=== PATIENT | male | born 1990 | race Caucasian/White ===

== ENCOUNTER 2020-09-14 19:24 | Day surgery (SDC) | payer OTHER, SELFPAY ==
[2020-09-14 19:28] VITALS: BP 161/98; PULSE 90; RESP 18; TEMP 36.6; O2SAT 98; BMI 30.3
--- NOTE | 2020-09-14 21:04 | ED_ITS ---
HPI - Abdominal Pain General: Chief Complaint: ER Hold Stated Complaint: Rt abd pain Time Seen by Provider: 09/14/20 21:04 History of Present Illness: HPI narrative: Patient is a 30-year-old male comes to the ED with abdominal pain. Patient says symptoms started today around noon. He started developing some abdominal pain that he described as a dull ache in the center of his abdomen. He says as the day progressed pain started migrating to right lower quadrant. Pain is located in the right lower quadrant and he rates it a 8 out of 10. He reports having one episode of emesis today. Endorses decreased appetite. Denies any fever, chest pain, shortness of breath, bladder or bowel symptoms. Denies any past abdominal surgeries. Associated Symptoms: Reports nausea and vomiting; Denies chills, constipation, diarrhea, dysuria, fever(s), hematochezia and hematuria Review of Systems Const: Denies: fever(s), chills or fatigue Eyes: Denies: change in vision or eye discomfort ENMT: Denies: throat pain, odynophagia, nasal discharge or nasal congestion Card: Denies: chest pain, palpitations, edema, swelling of feet/ankles, dyspnea on exertion or orthopnea Resp: Denies: dyspnea, productive cough or non-productive cough GI: Reports: abdominal pain (RLQ), nausea and vomiting; Denies: diarrhea, constipation or hematochezia : Denies: flank pain, difficulty urinating, dysuria or hematuria Musc: Denies: neck pain, back pain or extremity swelling Skin/Breast: Denies: rash or new lesions Neuro: Denies: headache(s), numbness in extremities or weakness in extremities Physical Exam Const: COMMON NORMALS: patient oriented x3 and alert GENERAL APPEARANCE: cooperative and in distress (Patient does appear to be in some pain.); not comfortable (Patient appears uncomfortable and in some pain.) HENMT: COMMON NORMALS: normocephalic HEAD & SCALP: normocephalic MOUTH: Normal oral and palatal mucosa present THROAT: posterior oropharynx normal and uvula midline Eye: COMMON NORMALS: Equal, round and reactive pupils present PUPIL: Yes Equal, round and reactive pupils present Neck/C-Spine: COMMON NORMALS: supple GENERAL: Yes normal visual inspection Resp: COMMON NORMALS: normal respiratory effort, No retractions, No use of accessory muscles and clear to auscultation bilaterally EFFORT & INSPECTION: Yes able to speak in complete sentences, No tachypneic, No respiratory distress and No labored AUSCULTATION: clear to auscultation bilaterally Cardio: COMMON NORMALS: regular rate, regular rhythm, S1 normal heart sound present, S2 normal heart sound present, No gallops present (Cardio), No clicks present (Cardio), No murmurs present (Cardio) and Peripheral pulses 2+ throughout RATE: regular rate RHYTHM: regular rhythm HEART SOUNDS: S1 normal heart sound present and S2 normal heart sound present PERIPHERAL PULSES: Peripheral pulses 2+ throughout GI: COMMON NORMALS: Normal to inspection, nondistended, normoactive bowel sounds present, Soft to palpation and no masses PALPATION: Yes Soft to palpation and Yes Tenderness to palpation present (GI) Details: RLQ (Positive McBurney's point and positive Rovsing sign.) : COMMON NORMALS: Yes no CVA tenderness BLADDER/KIDNEY EXAM: Yes no CVA tenderness Back/Pelvis: COMMON NORMALS: no CVA tenderness Extremity: COMMON NORMALS: normal to inspection Neuro: COMMON NORMALS: patient oriented x3 SENSORIUM/ORIENTATION: Yes alert GAIT: Yes Normal gait present Skin: GENERAL SKIN EXAM: dry skin Course Consultations: Consultation #1: Dr. Hart notified. Told about patient case and he told me to put him on IV Zosyn and bring him into the hospital for surgery in the a.m. Time: 22:05 Vital Signs: Vital signs: Vital Signs Temperature 97.9 F 09/14/20 19:28 Pulse Rate 94 09/14/20 22:38 Respiratory Rate 18 09/14/20 22:38 Blood Pressure 135/77 09/14/20 22:38 Pulse Oximetry 97 09/14/20 22:38 MDM - Abdominal Pain MDM Narrative: Medical decision making narrative: Patient is a 30-year-old male comes to the ED with right lower quadrant abdominal pain that started today. Patient has right lower quadrant tenderness with positive McBurney's point upon exam. White blood cell count 17.9. CT of abdomen shows acute appendicitis. I contacted Dr. Hart about patient case and he told me to put him on some Zosyn to bring him into the hospital for surgery in the morning. I told patient about acute appendicitis and that he is going to be brought in to the hospital for surgery in the morning he understood and agreed with plan. Lab Data: Attestation: I reviewed the patient's lab results. Labs: Lab Results 09/14/20 09/14/20 09/14/20 Range/Units 21:09 21:09 21:21 WBC 17.9 H (4.0-10.0) 10^3/ uL RBC 5.55 H (4.1-5.3) 10^6/u L Hgb 16.4 (11.7-16.6) g/dL Hct 49.6 (42.0-52.0) % MCV 89.4 (80-94) fL MCH 29.5 (28.0-34.0) pg MCHC 33.1 (30.0-36.0) g/dL RDW 12.0 L (12.1-15.1) % Plt Count 265 (130-400) 10^3/c mm MPV 8.6 (7.4-10.4) fL Neut % (Auto) 78.4 % Lymph % (Auto) 13.8 % [place] % (Auto) 6.0 % Eos % (Auto) 0.9 % Baso % (Auto) 0.5 % Neut # (Auto) 14.04 H (1.8-7.7) 10^3/u L Lymph # (Auto) 2.5 (0.8-4.8) 10^3/u L [place] # (Auto) 1.1 H (0.2-0.9) 10^3/u L Eos # (Auto) 0.2 (0.0-0.8) 10^3/u L Baso # (Auto) 0.1 (0.0-0.1) 10^3/u L Nucleated RBC % (a uto) 0 % Nucleated RBCs # 0.0 /100WBC Sodium 138 (136-145) mmol/L Potassium 3.8 (3.5-5.1) mmol/L Chloride 100 (98-107) mmol/L Carbon Dioxide 25 (22-29) mmol/L Anion Gap 16.8 (5-19) BUN 19 (6-20) mg/dL Creatinine 1.0 (0.7-1.2) mg/dL GFR Calculation 89.0 L (90-130) mL/min Glucose 117 H (65-115) mg/dL Calculated Osmolal ity 289 (285-295) mOsm/k g Calcium 10.3 (8.5-10.5) mg/dL Total Bilirubin 0.4 (0.15-1.2) mg/dL AST 27 (0-40) U/L ALT 41 (0-41) U/L Alkaline Phosphata se 91 (40-130) IU/L Total Protein 7.8 (6.6-8.7) g/dL Albumin 4.8 (3.5-5.2) g/dL Globulin 3.0 (1.3-4.6) g/dL Lipase 23 (13-60) U/L Urine Color Yellow (Yellow) Urine Appearance Clear (CLEAR) Urine pH 5.0 (5-7) Ur Specific Gravit y 1.020 (1.005-1.030) Urine Protein Neg (Negative) Urine Glucose (UA) Norm (Normal) Urine Ketones Negative (Negative) Urine Blood 2+ H (Negative) Urine Nitrate Negative (Negative) Urine Bilirubin Neg (Negative) Urine Urobilinogen Norm (Negative) mg/dL Ur Leukocyte Samira ase Negative (Negative) Urine RBC 0-4 H (0-2) /hpf Urine WBC 0-4 H (0-5) /hpf Ur Squamous Epith Cells None (0-5) /hpf Amorphous Sediment Not Reportable Urine Bacteria Trace (NONE) /hpf Imaging Data ^: CT Abd/Pel: Attestation: I personally reviewed and interpreted this imaging study as follows: Radiologist's impression: [address] [address] [address] Scan Report Signed with Addenda Patient: Roel Mehta Unit #: [id number] : 1990 Age/Sex: 30 / M ADM Date: 09/14/20 Loc: ER Room/Bed: Attending Dr: Ordering Provider/Ordering MD: Clarence Slater Date of Service: 09/14/20 Procedure(s): CT abdomen pelvis w con* [id number] Accession Number(s): [id number] Report Number: [id number]/CT abdomen pelvis w con* [id number] Addendum: THIS REPORT CONTAINS FINDINGS THAT MAY BE CRITICAL TO PATIENT CARE. The findings were verbally communicated via telephone conference with Dr. Alaniz at 9:57 PM [employer] on 09/14/2020. The findings were acknowledged and understood. Radiation Dose CTDIVOL = (mGy): DLP = 1041.87 (mGy-cm) Addendum Dictated By: Josemanuel Griffith Addendum Signed By: Josemanuel Griffith Signed Date/Time: 09/14/20 215 9 Addendum Cosigned By: PROCEDURE INFORMATION: Exam: CT Abdomen And Pelvis With Contrast Exam date and time: 09/14/2020 9:20 PM Age: 30 years old Clinical indication: Abdominal pain; Localized; Right lower quadrant (rlq); Patient HX: Rlq pain TECHNIQUE: Imaging protocol: Computed tomography of the abdomen and pelvis with intravenous contrast. Radiation optimization: All CT scans at this facility use at least one of these dose optimization techniques: automated exposure control; mA and/or kV adjustment per patient size (includes targeted exams where dose is matched to clinical indication); or iterative reconstruction. Contrast material: OMNI 300; Contrast volume: 95 ml; Contrast route: INTRAVENOUS (IV); COMPARISON: No relevant prior studies available. RADIATION DOSE METRICS: Total DLP (mGy-cm): 1041.87 FINDINGS: Liver: There is no focal abnormality within the liver. Gallbladder and bile ducts: The gallbladder is normal. Pancreas: The pancreas is normal. Spleen: The spleen is normal. Adrenal glands: The adrenal glands are normal. Kidneys and ureters: The kidneys are normal. There is no evidence of hydronephrosis. There is no evidence of renal or ureteral calcifications. Stomach and bowel: Unremarkable. No obstruction. No mucosal thickening. Appendix: Appendix is mildly dilated in fluid-filled with enhancing mucosa and a diameter of approximately 12 mm. There is some minimal stranding in the periappendiceal fat. These findings are worrisome for acute appendicitis. Intraperitoneal space: There is no evidence of free intraperitoneal fluid. Vasculature: Unremarkable. No abdominal aortic aneurysm. Lymph nodes: There is some mildly prominent mesenteric lymph nodes in the right lower quadrant. Urinary bladder: Unremarkable as visualized. Reproductive: Unremarkable as visualized. Bones/joints: Unremarkable. No acute fracture. Soft tissues: Unremarkable. CT/CT abdomen pelvis w con* [id number] IMPRESSION: Findings worrisome for acute appendicitis. Radiation Dose CTDIVOL = (mGy): DLP = 1041.87 (mGy-cm) Dictated By: Josemanuel Griffith Signed By: Josemanuel Griffith Signed Date/Time: 11/15/192157 DD/ 55 Discharge Plan Discharge Clinical Impression: Acute appendicitis Qualifiers: Acute appendicitis type: with localized peritonitis Appendicitis gangrene presence: without gangrene Appendicitis perforation presence: without perforation Appendicitis abscess presence: without abscess Qualified Code(s): K35.30 - Acute appendicitis with localized peritonitis, without perforation or gangrene Condition: Stable Referrals: Cesar Elizondo MD [Primary Care Provider] - Patient Instructions: Appendicitis (GEN) Coding Level of Care Code ED Chief Clerk for g Fwd Exam Comprehensive
--- NOTE | 2020-09-14 21:11 | CTR_ITS ---
PROCEDURE INFORMATION: Exam: CT Abdomen And Pelvis With Contrast Exam date and time: 09/14/2020 9:20 PM Age: 30 years old Clinical indication: Abdominal pain; Localized; Right lower quadrant (rlq); Patient HX: Rlq pain TECHNIQUE: Imaging protocol: Computed tomography of the abdomen and pelvis with intravenous contrast. Radiation optimization: All CT scans at this facility use at least one of these dose optimization techniques: automated exposure control; mA and/or kV adjustment per patient size (includes targeted exams where dose is matched to clinical indication); or iterative reconstruction. Contrast material: OMNI 300; Contrast volume: 95 ml; Contrast route: INTRAVENOUS (IV); COMPARISON: No relevant prior studies available. RADIATION DOSE METRICS: Total DLP (mGy-cm): 1041.87 FINDINGS: Liver: There is no focal abnormality within the liver. Gallbladder and bile ducts: The gallbladder is normal. Pancreas: The pancreas is normal. Spleen: The spleen is normal. Adrenal glands: The adrenal glands are normal. Kidneys and ureters: The kidneys are normal. There is no evidence of hydronephrosis. There is no evidence of renal or ureteral calcifications. Stomach and bowel: Unremarkable. No obstruction. No mucosal thickening. Appendix: Appendix is mildly dilated in fluid-filled with enhancing mucosa and a diameter of approximately 12 mm. There is some minimal stranding in the periappendiceal fat. These findings are worrisome for acute appendicitis. Intraperitoneal space: There is no evidence of free intraperitoneal fluid. Vasculature: Unremarkable. No abdominal aortic aneurysm. Lymph nodes: There is some mildly prominent mesenteric lymph nodes in the right lower quadrant. Urinary bladder: Unremarkable as visualized. Reproductive: Unremarkable as visualized. Bones/joints: Unremarkable. No acute fracture. Soft tissues: Unremarkable. CT/CT abdomen pelvis w con* [id number] IMPRESSION: Findings worrisome for acute appendicitis. Radiation Dose CTDIVOL = (mGy): DLP = 1041.87 (mGy-cm)
[2020-09-14] MEDS: sodium chloride 0.9% 1,000 ML 999 ML IV (21:22)
[2020-09-14] MEDS: ondansetron 2 mg/ML SDV 2 mL 4 MG IVP (21:23)
[2020-09-14] MEDS: morphine 4 mg/mL SDV 1 mL IVP ×2 (21:23→23:45)
[2020-09-14 21:28] VITALS: BP 149/88; PULSE 93; RESP 14; O2SAT 97
[2020-09-14] MEDS: iohexol 300 mg/mL 100 mL Btl IV (21:37)
[2020-09-14 21:48] LABS: Basophils # 0.1 10^3/uL (0.0-0.1); Basophils % 0.5 %; Eosinophils # 0.2 10^3/uL (0.0-0.8); Eosinophils % 0.9 %; Hematocrit 49.6 % (42.0-52.0); Hemoglobin 16.4 g/dL (11.7-16.6); Lymphocytes # 2.5 10^3/uL (0.8-4.8); Lymphocytes % 13.8 %; Mean Corpuscular HGB Conc 33.1 g/dL (30.0-36.0); Mean Corpuscular Hemoglobin 29.5 pg (28.0-34.0); Mean Corpuscular Volume 89.4 fL (80-94); Mean Platelet Volume 8.6 fL (7.4-10.4); Monocytes # 1.1 10^3/uL (0.2-0.9); Neutrophils # 14.04 10^3/uL (1.8-7.7); Neutrophils % 78.4 %; Nucleated Red Blood Cells % 0 %; Platelet Count 265 10^3/cmm (130-400); Red Blood Count 5.55 10^6/uL (4.1-5.3); White Blood Count 17.9 10^3/uL (4.0-10.0)
[2020-09-14 21:58] LABS: Urine Appearance Clear (CLEAR); Urine Color Yellow (Yellow)
[2020-09-14 21:59] LABS: Add Urine Culture? No; Bacteria Urine TRACE /hpf; Bilirubin Urine Neg (Negative); Blood Urine 2+ (Negative); Glucose Urine UA Norm (Normal); Ketones Urine Negative (Negative); Leukocyte Esterase Urine Negative (Negative); Nitrate Urine Negative (Negative); Protein Urine Neg (Negative); RBC Urine 0-4 /hpf (0-2); Urobilinogen Urine Norm (Negative); WBC Urine 0-4 /hpf (0-5)
[2020-09-14 22:13] LABS: Alanine Aminotransferase 41 U/L (0-41); Albumin Level 4.8 g/dL (3.5-5.2); Alkaline Phosphatase 91 IU/L (40-130); Anion Gap 16.8 (5-19); Aspartate Amino Transferase 27 U/L (0-40); Blood Urea Nitrogen 19 mg/dL (6-20); Calcium 10.3 mg/dL (8.5-10.5); Carbon Dioxide 25 mmol/L (22-29); Chloride 100 mmol/L (98-107); Glucose 117 mg/dL (65-115); Lipase 23 U/L (13-60); Osmolality Calculated 289 mOsm/kg (285-295); Potassium 3.8 mmol/L (3.5-5.1); Sodium 138 mmol/L (136-145); Total Bilirubin 0.4 mg/dL (0.15-1.2); Total Protein 7.8 g/dL (6.6-8.7)
[2020-09-14 22:38] VITALS: BP 135/77; PULSE 94; RESP 18; O2SAT 97
[2020-09-14] MEDS: piperacillin-tazobactam 3.375 GM in sodium chloride 0.9% (plus) 50 ML IV (22:38)
[2020-09-14 22:59] VITALS: BP 135/77; PULSE 98; RESP 16; O2SAT 94
[2020-09-14 23:45] VITALS: RESP 16
[2020-09-15] VITALS (31 sets, daily range): BP systolic 96–152; BP diastolic 62–92; PULSE 54–96; RESP 14–21; TEMP 36.3–38; O2SAT 88–100
[2020-09-15] MEDS: sodium chloride 0.9% 1,000 ML 100 ML IV (01:01)
--- NOTE | 2020-09-15 02:11 | PC.NURSE ---
Placed patient on O2 via NC @ 2L/min per verbal order by Dr. Pal due to low O2 sat of 88% on room air.
--- NOTE | 2020-09-15 05:20 | P.HP_ITS ---
Providers/Chief Complaint Admitting Physician: Sunny Tan MD Primary Care Provider: Cesar Elizondo MD Chief Complaint: Rt abd pain History of Present Illness Mr. Roel Mehta is a 30 year old male presents to the emergency department with history of abdominal pain around the bellybutton around 6 PM yesterday, the patient describes that his pain was more dull and is not being referred yet over time started to shift to the right lower quadrant with episode of vomiting but no nausea, low-grade temperature patient reports otherwise no dysuria or change in bowel habits or chills and he reported to me that he was diagnosed with COVID-19 60 days ago. He recovers well from all that. As pain got worse ,patient presented to the emergency department and was found to have leukocytosis and a CT scan of the abdomen and pelvis that showed: COMPARISON: No relevant prior studies available. RADIATION DOSE METRICS: Total DLP (mGy-cm): 1041.87 FINDINGS: Liver: There is no focal abnormality within the liver. Gallbladder and bile ducts: The gallbladder is normal. Pancreas: The pancreas is normal. Spleen: The spleen is normal. Adrenal glands: The adrenal glands are normal. Kidneys and ureters: The kidneys are normal. There is no evidence of hydronephrosis. There is no evidence of renal or ureteral calcifications. Stomach and bowel: Unremarkable. No obstruction. No mucosal thickening. Appendix: Appendix is mildly dilated in fluid-filled with enhancing mucosa and a diameter of approximately 12 mm. There is some minimal stranding in the periappendiceal fat. These findings are worrisome for acute appendicitis. Intraperitoneal space: There is no evidence of free intraperitoneal fluid. Vasculature: Unremarkable. No abdominal aortic aneurysm. Lymph nodes: There is some mildly prominent mesenteric lymph nodes in the right lower quadrant. Urinary bladder: Unremarkable as visualized. Reproductive: Unremarkable as visualized. Bones/joints: Unremarkable. No acute fracture. Soft tissues: Unremarkable. CT/CT abdomen pelvis w con* [id number] IMPRESSION: Findings worrisome for acute appendicitis. Patient was seen and evaluated based on general surgery consultation the ER bed 4 . Further evaluation and care Review of Systems General: Reports: 10 or more systems reviewed and unremarkable except in HPI and below Medications/Allergies Allergies Allergy/AdvReac Type Severity Reaction Status Date / Time No Known Allergies Allergy Verified 09/14/20 19:30 PFSH Acute PFSH: Surgical History H/O hand surgery Vitals/I&O/Wt Last Vital Signs Temp 97.3 F L 09/15/20 04:54 Pulse 81 09/15/20 04:19 Resp 14 09/15/20 02:10 BP 152/66 09/15/20 04:19 Pulse Ox 93 09/15/20 04:19 09/14/20 09/14/20 09/15/20 14:59 22:59 06:59 Intake Total 1050 / 1050 Balance 1050 / 1050 Weight last 48 hrs Weight 230 lb Physical Exam Narrative: EXAM NARRATIVE: Patient is conscious alert oriented X3 BMI 30.3 Head and neck examination PERRLA no masses no cervical lymphadenopathy no jaundice Cardiac examination audible S1-S2 no murmurs no gallops no arrhythmias Chest is clear bilateral,abscence of Rhonchi or wheezes,no surgical emphysema Abdomen right lower quadrant tenderess nondistended soft no organomegaly, presence of localized guarding and rigidity Extremities no cyanosis no clubbing no edema Data : 09/14/20 21:09 09/14/20 21:09 A&P Assessment and plan (1) Acute appendicitis: After thorough history physical examination and reviewing the chart and images with my personal interpretion, I counseled the patient for laparoscopic appendectomy possible open. Indications, risks, benefits and alternatives were all discussed with the patient and did agree to proceed. Rationale was carefully and clearly discussed with the patient.Appropriate informed consent have been reviewed and signed Assurance and education All questions have been answered and all concerns have been addressed to patient's satisfaction. Status: Acute Qualifiers: Acute appendicitis type: with localized peritonitis Appendicitis abscess presence: without abscess Appendicitis gangrene presence: without gangrene Appendicitis perforation presence: without perforation Qualified Code(s): K35.30 - Acute appendicitis with localized peritonitis, without perforation or gangrene Attestations Medical Necessity Statement*: Observation for surgical care Time Spent in Patient Care: (>than 50% of time spent in counselling and/or direct pt care on unit) . Coding Level of Care Code Acute [employer] Secretary for [facility] Fwd Diagnoses Acute appendicitis K35.30 Acute appendicitis type: with localized peritonitis Appendicitis abscess presence: without abscess Appendicitis gangrene presence: without gangrene Appendicitis perforation presence: without perforation
--- NOTE | 2020-09-15 06:43 | P.ANESASSM_ITS ---
Pre-Anesthetic Assessment Pre-Anesthetic Assessment: Height/Weight: Height 1.85 m Weight 104.326 kg Temp Pulse Resp BP Pulse Ox 100.4 F H 95 19 H 127/75 95 09/15/20 06:00 09/15/20 06:00 09/15/20 06:00 09/15/20 06:00 09/15/20 06:00 Preop Diagnosis: Acute appendicitis Proposed Procedure: Operation Date: 09/15/20 06:20 Proposed Procedures p Laparoscopic Appendectomy(Not Applicable) - Neymar Hart MD Was Beta Gurinder taken within 24 hours: N/A Last intake: Intake Last Liquid Date 09/14/20 Last Liquid Time 18:00 Last Solid Date 09/14/20 Last Solid Time 12:00 Social: Social History: No alcohol and No tobacco Exam: Pre-Anes Outpt Exam: alert, oriented x 3, clear to auscultation bilaterally and regular rate & rhythm Airway: Submandibular: WNL Cervical ROM: WNL MP: 2 Dentition: Full History/ROS: No significant history except as noted GI: Comments: Acute appe Anesthetic Plan: ASA status: 2E Anesthesia: General Other: RSI Risk of > 500 ml blood loss (7ml/kg in children): No Meds/Allergies Current Medications: Current Medications Generic Name Dose Route Start Last Admin Trade Name Freq PRN Reason Stop Dose Admin Sodium Chloride 1,000 mls @ 100 m ls/hr 09/14/20 23:37 09/15/20 01:01 Sodium Chloride 0.9% IV 100 mls/hr .Q10H MARGY Administration PFSH Anesthesia PFSH: Surgical History H/O hand surgery Data Anesthesia CBC & Chem 7: 09/14/20 21:09 09/14/20 21:09 Other Labs: Laboratory Results - last 48 hr 09/14/20 09/14/20 09/14/20 21:09 21:09 21:21 WBC 17.9 H RBC 5.55 H Hgb 16.4 Hct 49.6 MCV 89.4 MCH 29.5 MCHC 33.1 RDW 12.0 L Plt Count 265 MPV 8.6 Neut % (Auto) 78.4 Lymph % (Auto) 13.8 [place] % (Auto) 6.0 Eos % (Auto) 0.9 Baso % (Auto) 0.5 Neut # (Auto) 14.04 H Lymph # (Auto) 2.5 [place] # (Auto) 1.1 H Eos # (Auto) 0.2 Baso # (Auto) 0.1 Nucleated RBC % (auto) 0 Nucleated RBCs # 0.0 Sodium 138 Potassium 3.8 Chloride 100 Carbon Dioxide 25 Anion Gap 16.8 BUN 19 Creatinine 1.0 GFR Calculation 89.0 L Glucose 117 H Calculated Osmolality 289 Calcium 10.3 Total Bilirubin 0.4 AST 27 ALT 41 Alkaline Phosphatase 91 Total Protein 7.8 Albumin 4.8 Globulin 3.0 Lipase 23 Urine Color Yellow Urine Appearance Clear Urine pH 5.0 Ur Specific [place] 1.020 Urine Protein Neg Urine Glucose (UA) Norm Urine Ketones Negative Urine Blood 2+ H Urine Nitrate Negative Urine Bilirubin Neg Urine Urobilinogen Norm Ur Leukocyte Esterase Negative Urine RBC 0-4 H Urine WBC 0-4 H Ur Squamous Epith Cells None Amorphous Sediment Not Reportable Urine Bacteria Trace Cardiac Studies: No Data to Display
[2020-09-15] MEDS: lidocaine 2% INJ 20 mL INJECTION (07:10)
--- NOTE | 2020-09-15 07:24 | P.OP_ITS ---
Operative Report Date of procedure: September 15, 2020 Pre-op Diagnosis: Acute appendicitis Post-op diagnosis: same Post-op Findings: Retrocecal acute appendicitis Procedure Done: Laparoscopic appendectomy Specimens removed/disposition: Appendix Surgeon: Neymar Hart Endoscopy Specialty Technician: Surgical Gustavo Contreras Circulating nurse Flaca Anesthesia: General (Ted Atkinson and Josselyn) Estimated blood loss (mL): 10 IV fluids (mL): 1,000 Condition: stable Disposition: observation Procedure: Patient after being identified in the holding area and asked to void urine, and informed consent per chart ,patient was then taken back to the OR placed in supine position got intubated by anesthesia left arm was tucked tucked ,Timeout was done verifying the patient's name/date of /planned procedure and destination after the procedure, all were in agreement., preoperative antibiotics administered per protocol. prep and drape of the abdomen was done under the usual sterile technique. Started by longitudinal skin incision supraumbilical using a Damon trocar technique safe entry to the abdominal cavity was achieved verified by using 10 mm zero degree laparoscopy, switched to a 30? scope under direct visualization a suprapubic 5 mm trocar was inserted followed by another 5 mm trocar inserted in the left lower quadrant, I was able to position the patient in an T [place] and left side down, dissection of the prececal acutely inflamed appendix there was some adhesions towards the lateral pelvic wall that was taken down by sharp and blunt dissection, attention was deviated to the healthy base of the appendix where I had to switch the camera to 5 mm 30? scope got introduced through the left lower quadrant and through the Damon trocar under direct visualization a GI stapler 45 mm blue load was applied at the healthy part of the base of the appendix, and a vascular load was applied onto the mesoappendix for control , the appendix was then retrieved in an Endo Catch bag, final survey was done of the abdomen and pelvis , irrigation with warm saline, and suction was obtained. Multiple 5 mm clips were applied onto the mesoappendix as well as the appendectomy staple line and a right lateral pelvic wall for minimal oozing. Final look laparoscopy was done showing no other abnormalities or injuries,all trocars were taken out under direct visualization after the supraumblical trocar site was closed by #1 PDS sutures under direct vision using fascial closure device ,followed by skin closure using 4-0 Monocryl of all trocar site incisions,infiltration of local lidocaine 2% was done to all incision sites.Dry dressing was applied. Count was completed at the end of the procedure for [place],sponges and instruments Patient tolerated the procedure well and was transferred to the recovery area after extubation. I was present for the whole entire procedure
[2020-09-15] MEDS: fentaNYL 50 mcg/mL INJ 2mL IVP ×2 (07:51→07:56)
[2020-09-15] MEDS: morphine 4 mg/mL SDV 1 mL 2 MG IVP (08:01)
--- NOTE | 2020-09-15 08:16 | ANE.PACU2 ---
Inpatient post-anesthesia follow up: Airway intact: Yes Vital signs: Temperature 97.8 F Pulse Rate [Left R adial] 90 Pulse Rate 56 Respiratory Rate 18 Blood Pressure [Ri ght Arm] 161/98 Blood Pressure 133/69 Pulse Oximetry 92 Oxygen Delivery Me thod Room Air Oxygen Flow Rate 8 Fraction of Inspir ed Oxygen Hydration adequate: Yes Nausea and vomiting: No Pain level: 2 Mental status: Baseline
[2020-09-15] MEDS: morphine 4 mg/mL SDV 1 mL IVP ×2 (10:32→12:35)
[2020-09-15] MEDS: piperacillin-tazobactam 3.375 GM in sodium chloride 0.9% (plus) 50 ML IV (15:30)
--- NOTE | 2020-09-15 15:31 | P.SS_ITS ---
Short Stay Summary Providers Date of Admit/Discharge: 09/16/20 Attending Provider: Sunny Tan MD Primary Care Provider: Cesar Elizondo MD Chief Complaint: Rt abd pain HPI History of Present Illness Roel Mehta is a 30 year old male presented to the emergency department with worsening abdominal pain, and further work-up showed including CT scan of the abdomen and pelvis that revealed acute appendicitis. Patient was further counseled for laparoscopic appendectomy possible open and he agreed to proceed accordingly. Review of Systems General: Reports: 10 or more systems reviewed and unremarkable except in HPI and below Home Meds/Allergies Home Medications and Allergies Allergies Allergy/AdvReac Type Severity Reaction Status Date / Time No Known Allergies Allergy Verified 09/14/20 19:30 PFSH Acute PFSH: Surgical History H/O hand surgery Vitals/I&O/Wt Last Vital Signs Temp 97.8 F 09/15/20 08:25 Pulse 74 09/15/20 11:00 Resp 16 09/15/20 12:35 BP 112/67 09/15/20 11:00 Pulse Ox 96 09/15/20 12:35 09/15/20 09/15/20 09/15/20 06:59 14:59 22:59 Intake Total 1200 / 1200 1000 / 1000 Output Total 10 Balance 1200 / 1200 990 / 990 Weight last 48 hrs Weight 230 lb Physical Exam Narrative: EXAM NARRATIVE: Patient is conscious alert oriented X3 BMI 30 Head and neck examination PERRLA no masses no cervical lymphadenopathy no jaundice Abdomen nontender except mildly at the incision site nondistended soft no organomegaly guarding or rigidity/no signs of peritonitis Extremities no cyanosis no clubbing no edema Hospital Course Discharge Summary Patient undergone uneventful surgery and recovered well and was discharged same day after surgery after at least 6 hours of observation in the holding area. Patient received IV antibiotics 2 doses after surgery and he was discharged on Augmentin and oral pain medications. Maintained to have stable vital signs and good urine output and tolerating well p.o. intake. SSS Data Data Completed and Pending: Completed Studies During Hospitalization Category Date Time Status CT abdomen pelvis w con* [id number] Urge nt Cat Scan 09/14/20 21:11 Completed Pending at discharge Category Date Time Status ES surgery / GI i mages Routine Exams 09/15/20 06:18 Taken Pathology: Surgic al [PTH] Routine Pth 09/15/20 07:37 Received Diagnoses at Discharge Discharge Diagnosis (1) Acute appendicitis: Status: Resolved Permanent problem details: Condition resolved and patient is discharged home Qualifiers: Acute appendicitis type: with localized peritonitis Appendicitis abscess presence: without abscess Appendicitis gangrene presence: without gangrene Appendicitis perforation presence: without perforation Qualified Code(s): K35.30 - Acute appendicitis with localized peritonitis, without perforation or gangrene Discharge Plan Discharge Patient Disposition: Home Condition: Stable Prescriptions: [place] 5-325 mg tablet 1 tab PO Q6H PRN (Reason: pain) Qty: 28 RF: 0 Augmentin 875-125 mg tablet 1 tab PO BID Qty: 14 RF: 0 Discharge Orders: Discharge Order (Routine); Ordered 09/15/20 Ordered By: Neymar Hart Referrals: Neymar Hart MD [Physician] - 09/23/20 11:15 am (Return to surgery office in 10 days) Cesar Elizondo MD [Primary Care Provider] - Discharge Diet: Advance as tolerated Discharge Activity: Limit activity as instructed Patient Instructions: Appendicitis (GEN) Activity Restrictions/Additional Instructions: 1. Patient can shower after 48 hours from surgery 2. Remove Dermabond 7 to 10 days after surgery, if there is a secondary dressing can take down after 48 hours. 3. Up and walking as tolerated 4. Do lift more than 5 pounds first 2 weeks after surgery and not more than 25 pounds 6 to 8 weeks after surgery. 5. Do not operate heavy machinery or drive while using pain medications. 6.Contact the office or return to the ER for worsening nausea vomiting fevers or chills, or noticing any redness around incision sites or discharge. 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
== END 2020-09-15 16:25 | disposition home or self-care (01) ==
LOC: ER 22:57 → ER IP 09-15 05:26 → OPS 09-15 06:08
PROVIDERS: Surgery; Emergency Provider Physician Assistant; PCP Family Medicine; Visit Provider Internal Medicine
PROC: 0DTJ4ZZ Resection of Appendix, Percutaneous Endoscopic Approach (ICD-10-PCS; CPT 44970; principal; 2020-09-15 06:00)
DX: K35.30 Acute appendicitis with localized peritonitis, without perforation or gangrene (principal)
CPT/HCPCS: 44970; 12345; 74177; 80053; 81001; 83690; 85025; 88304; 99283; J0131; J0330; J0690; J1100; J2250; J2270; J2405; J2543; J2704; J3010; J3490; J7030; Q9967

== ENCOUNTER → 2023-06-28 15:25 | Outpatient (BNVA) | payer OTHER, SELFPAY | PROVIDERS: PCP Family Medicine; Referring Provider Dermatology; Visit Provider Physician Assistant | DX: S83.8X2A Sprain of other specified parts of left knee, initial encounter; X58.XXXA Exposure to other specified factors, initial encounter; Y93.68 Activity, volleyball (beach) (court) | CPT/HCPCS: 73560; 73565 ==

== ENCOUNTER 2023-07-25 06:59 | Outpatient (CLI) | payer OTHER, SELFPAY ==
--- NOTE | 2023-07-25 07:15 | MR_ITS ---
WS: [id number] MRI LEFT KNEE NONCONTRAST TECHNIQUE: Axial PD, coronal PD fat sat, coronal PD, sagittal PD, and sagittal PD fat-sat images obta ined. CLINICAL INFORMATION: left knee injury, rule out meniscal tear COMPARISON: None. FINDINGS: Distal quadriceps and patella tendons are intact. Prepatellar soft tissue edema. Distention of the pr epatellar bursa compatible with prepatellar bursitis. Normal ACL and PCL. Mild chronic thinning of th e medial meniscus. No acute appearing meniscal tears. Mild chondromalacia patella. Normal medial and lateral patellar retinaculum. No evidence of acute dislocation. Normal popliteal fossa. Tiny suprapatellar effusion. Medial and lateral collateral ligaments appear i ntact. Fibular head is normal in appearance. Popliteus appears intact with a small amount of increase d signal. Small amount of fluid and edema along the lateral collateral ligament complex and popliteus extending to the fibula head can be seen with posterolateral corner injury. No other suspicious find ings. IMPRESSION: 1. Small amount of prepatellar bursitis with soft tissue edema. 2. Normal ACL and PCL. 3. Mild chronic thinning of the medial meniscus. No acute appearing meniscal tears. 4. Mild chondromalacia patella. No evidence of acute dislocation. 5. Medial lateral collateral ligaments appear intact. 6. Small amount of fluid and edema along the lateral collateral ligament complex and fibula head can be seen with posterolateral corner injury. 7. Small amount of increased signal in the popliteus which appears intact. * Outbridge grading: grade II: blister-like swelling/fraying of articular cartilage extending to snow face
== END 2023-07-25 07:00 | disposition home or self-care (01) ==
LOC: RAD 06:59
PROVIDERS: PCP Family Medicine; Visit Provider Physician Assistant
DX: S83.8X2A Sprain of other specified parts of left knee, initial encounter (principal); X58.XXXA Exposure to other specified factors, initial encounter; M22.42 Chondromalacia patellae, left knee
CPT/HCPCS: 73721

== ENCOUNTER 2023-08-02 11:11 | Outpatient (CLI) | payer OTHER, SELFPAY | END 2023-08-02 11:12 | disposition home or self-care (01) | LOC: SPT 11:12 | PROVIDERS: PCP Family Medicine; Visit Provider Physician Assistant | DX: Z46.89 Encounter for fitting and adjustment of other specified devices (principal); S89.92XD Unspecified injury of left lower leg, subsequent encounter; X58.XXXD Exposure to other specified factors, subsequent encounter; S83.8X2D Sprain of other specified parts of left knee, subsequent encounter | CPT/HCPCS: 97760; L1832 ==

== ENCOUNTER 2023-08-30 11:13 | Outpatient (CLI) | payer OTHER, SELFPAY | END 2023-08-30 11:14 | disposition home or self-care (01) | LOC: SPT 11:13 | PROVIDERS: PCP Family Medicine; Visit Provider Student in an Organized Health Care Education/Training Program | DX: Z46.89 Encounter for fitting and adjustment of other specified devices (principal); S83.8X2D Sprain of other specified parts of left knee, subsequent encounter; X58.XXXD Exposure to other specified factors, subsequent encounter | CPT/HCPCS: 97760; L1812 ==